=== PATIENT | female | born 1945 | race Caucasian/White ===

== ENCOUNTER 2019-06-15 16:47 | Emergency (ER) | payer MEDICARE, OTHER ==
[~2019-06-15] VITALS: Ht 152.4 cm; Wt 73.5 kg
--- OUTSIDE RECORDS SUMMARY | 2019-06-15 16:50 | XMS REPORT ---
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 Allergies, Adverse Reactions, Alerts Allergy Name Allergy Type Status Severity Reaction(s) Onset Date Inactive Date Treating Clinician Comments acetaminophen DA Active U 2019-06-08 00:00:00 milk FA Active SV 2019-06-08 00:00:00 pregabalin DA Active U 2019-06-08 00:00:00 carbidopa DA Active U 2017-07-12 00:00:00 codeine DA Active U 2017-07-12 00:00:00 acetaminophen DA Active U 2017-07-12 00:00:00 levodopa DA Active U 2017-07-12 00:00:00 sulfamethoxazole DA Active U 2017-07-12 00:00:00 trimethoprim DA Active U 2017-07-12 00:00:00 ciprofloxacin DA Active U 2017-07-12 00:00:00 gabapentin DA Active U 2017-07-12 00:00:00 vancomycin DA Active U 2017-07-12 00:00:00 levofloxacin DA Active U 2017-07-12 00:00:00 Medications This patient has no known medications. Encounters Start Date/Time End Date/Time Encounter Type Admission Type Attending Clinicians Care Facility Care Department Encounter ID 2019-05-10 05:59:00 2019-05-10 05:59:00 Outpatient [facility]SE [id number] Results Test Description Test Time Test Comments Text Results Atomic Results Result Comments GLUBED 2019-06-13 09:42:00 GLUBED (test code=GLUBED) 110 MG/DL 70-110 Performed by certified reflow operator at [facility] [id number] 06:57:00* Test Item Value Reference Range Comments GLUBED (test code=GLUBED) 100 MG/DL 70-110 Performed by certified reflow operator at [facility] COMPREHENSIVE METABOLIC [id number] 15:25:00* Test Item Value Reference Range Comments SODIUM (test code=NA) 138 mEq/L 134-147 POTASSIUM (test code=K) 4.1 mEq/L 3.4-5.0 CHLORIDE (test code=CL) 103 mEq/L 100-108 CARBON DIOXIDE (test code=CO2) 33 mEq/L 21-33 ANION GAP (test code=GAP) 6 0-20 GLUCOSE (test code=GLU) 102 mg/dL 70-110 BLOOD UREA NITROGEN (test code=BUN) 22 mg/dL 7-18 GLOMERULAR FILTRATION RATE (test code=GFR) 54.1 70-80 Units of measure=ml/min/1.73 m2 CREATININE (test code=CREAT) 1.0 mg/dL 0.6-1.3 TOTAL PROTEIN (test code=PROT) 7.9 g/dL 6.4-8.2 ALBUMIN (test code=ALB) 3.70 g/dL 3.4-5.0 CALCIUM (test code=CA) 8.9 mg/dL 8.0-10.5 BILIRUBIN TOTAL (test code=BILT) 0.2 MG/DL <1.5 SGOT/AST (test code=AST) 10 IUnit/L 15-37 SGPT/ALT (test code=ALT) 15 IUnit/L 15-65 ALKALINE PHOSPHATASE TOTAL (test code=ALKP) 86 IUnit/L 20-125 COMPREHENSIVE METABOLIC [id number] 15:21:00* Test Item Value Reference Range Comments SODIUM (test code=NA) 138 mEq/L 134-147 POTASSIUM (test code=K) 4.1 mEq/L 3.4-5.0 CHLORIDE (test code=CL) 103 mEq/L 100-108 CARBON DIOXIDE (test code=CO2) 33 mEq/L 21-33 ANION GAP (test code=GAP) 6 0-20 GLUCOSE (test code=GLU) 102 mg/dL 70-110 BLOOD UREA NITROGEN (test code=BUN) 22 mg/dL 7-18 GLOMERULAR FILTRATION RATE (test code=GFR) 70-80 CREATININE (test code=CREAT) mg/dL 0.6-1.3 TOTAL PROTEIN (test code=PROT) g/dL 6.4-8.2 ALBUMIN (test code=ALB) g/dL 3.4-5.0 CALCIUM (test code=CA) 8.9 mg/dL 8.0-10.5 BILIRUBIN TOTAL (test code=BILT) MG/DL <1.5 SGOT/AST (test code=AST) IUnit/L 15-37 SGPT/ALT (test code=ALT) IUnit/L 15-65 ALKALINE PHOSPHATASE TOTAL (test code=ALKP) IUnit/L 20-125 CBC W/AUTO [id number] 15:11:00* Test Item Value Reference Range Comments WHITE BLOOD CELL (test code=WBC) 5.84 x10 3/uL 4.5-11.0 RED BLOOD CELL (test code=RBC) 4.03 x10 6/uL 3.54-5.02 HEMOGLOBIN (test code=HGB) 9.7 g/dL 11.0-15.0 HEMATOCRIT (test code=HCT) 32.7 % 33.0-45.0 MEAN CELL VOLUME (test code=MCV) 81.1 fL 81.0-99.0 MEAN CELL HGB (test code=MCH) 24.1 pg 27.0-33.0 MEAN CELL HGB CONCETRATION (test code=MCHC) 29.7 g/dL 33.0-37.0 RED CELL DISTRIBUTION WIDTH CV (test code=RDW) 15.3 % 11.5-14.5 RED CELL DISTRIBUTION WIDTH SD (test code=RDW-SD) 45.0 fL 37.0-54.0 PLATELET COUNT (test code=PLT) 226 x10 3/uL 150-400 MEAN PLATELET VOLUME (test code=MPV) 9.5 fL 7.0-9.0 NEUTROPHIL % (test code=NT%) 61.0 % 56.0-77.0 IMMATURE GRANULOCYTE % (test code=IG%) 0.3 % 0.0-2.0 LYMPHOCYTE % (test code=LY%) 21.9 % 14.0-32.0 MONOCYTE % (test code=MO%) 11.0 % 4.8-9.0 EOSINOPHIL % (test code=EO%) 4.8 % 0.3-3.7 BASOPHIL % (test code=BA%) 1.0 % 0.0-2.0 NUCLEATED RBC % (test code=NRBC%) 0.0 % 0-0 NEUTROPHIL # (test code=NT#) 3.56 x10 3/uL 2.0-7.6 IMMATURE GRANULOCYTE # (test code=IG#) 0.02 x10 3/uL 0.00-0.03 LYMPHOCYTE # (test code=LY#) 1.28 x10 3/uL 1.0-3.8 MONOCYTE # (test code=MO#) 0.64 x10 3/uL 0.1-0.8 EOSINOPHIL # (test code=EO#) 0.28 x10 3/uL 0.0-0.2 BASOPHIL # (test code=BA#) 0.06 x10 3/uL 0.0-0.2 NUCLEATED RBC # (test code=NRBC#) 0.00 x10 3/uL 0.0-0.1 MANUAL DIFF REQUIRED (test code=MDIFF) NO - XR CHEST 2 [id number] 15:08:00 FAX: Ginger Gavin MD [phone] [place]: St: PRE Name: JESIKA LEDEZMA [facility] : [birth year] Age/S: 74/F [address] [place] [address] Unit #: [id number] Loc: [place] [address] Phys: Ginger Patterson MD Acct: [id number] Dis Date: Status: PRE [facility] [place]ONE #: [phone] Exam Date: 06/08/2019 1501 FAX #: [phone] Reason: PREOP RECTOCELE EXAMS: CPT CODE: [id number] XR CHEST 2 V 92561 2 VIEW RADIOGRAPHS OF THE CHEST INDICATION: PREOPERATIVE EVALUATION RECTOCELE. TECHN IQUE: 2 radiographic views of the chest were obtained. COMPARISONS : Chest x-ray 09/29/2017 FINDINGS: There is a stable apex leftward thoracolumbar scoliotic curvature with apex at the thoracolu mbar junction. There is no acute osseous abnormality. There is no subdiaphragmatic free gas. There is stable mild cardiomegal y. There is no mediastinal mass. There is moderate atherosclerotic vascul ar calcification of the aorta. There is stable linear scar in the left midlung. There is no pneumothorax, pleural effusion or organized pneu monia. There is a stable left-sided central venous catheter with c atheter tip at the cavoatrial junction. IMPRESSION: 1. No acute cardiopulmonary process. Electron ically Signed by Blanco Tabor on 06/08/2019 at 1504 Reported and signed by: Patrick Tabor D.O. CC: Ginger Patterson MD Techn ologist: RT Hemal(R)(M) Trnscrd Date/Rene e/By: 06/08/2019 (1507) : By: [email or web address] Orig Print D/T: S: 06/08/2019 (9297) PAGE 1 Signed Report
--- NOTE | 2019-06-15 17:18 | NUR ---
bladder scanner shows 60 cc post residual; dr miranda notified
[2019-06-15 17:36] LABS: BILIRUBIN,URINE NEGATIVE (NEGATIVE); CLARITY,URINE SL CLOUDY (CLEAR); COLOR,URINE YELLOW (YELLOW); KETONES,URINE NEGATIVE (NEGATIVE); LEUKOCYTE ESTERASE ,URINE MODERATE (NEGATIVE); NITRITE,URINE POSITIVE (NEGATIVE); PROTEIN,URINE DIPSTICK TRACE (NEGATIVE); URINE UROBILINOGEN 0.2 mg/dL (0.2 - 1)
[2019-06-15 17:42] VITALS: BP 138/67
[2019-06-15 17:49] LABS: BACTERIA,URINE MANY /HPF
[2019-06-16] MEDS ORDERED: LIDOCAINE 5% PATCH TP SCH (09:00)
== END 2019-06-15 17:56 | disposition home or self-care (01) ==
LOC: ER 16:47
DX: N39.45 Continuous leakage (principal); E11.9 Type 2 diabetes mellitus without complications; E78.5 Hyperlipidemia, unspecified; E03.9 Hypothyroidism, unspecified; K21.9 Gastro-esophageal reflux disease without esophagitis; Z85.3 Personal history of malignant neoplasm of breast
CPT/HCPCS: 81001; 99282

== ENCOUNTER 2019-06-22 11:10 | Inpatient (IN) | payer MEDICARE, OTHER ==
[~2019-06-22] VITALS: Ht 152.4 cm; Wt 73.0 kg
--- NOTE | 2019-06-22 11:45 | NUR ---
Patient roomed to ER 7, NIBP, pulse ox, and cardiac monitoring applied to pt. Bed locked in lowest position. Call light in reach. Spouse at bedside. Clark at bedside attempting IV insertion. Will continue to monitor.
[2019-06-22 12:21] LABS: BASOPHILS # (AUTO) 0.1 (0.0-0.1); BASOPHILS % 0.4 % (0.0-1.0); EOSINOPHILS # (AUTO) 0.2 (0.0-0.4); EOSINOPHILS % 1.6 % (0.0-6.0); HEMOGLOBIN 11.5 g/dL (12.0-16.0); LYMPHOCYTES % 8.3 % (18.0-39.1); MEAN CORPUSCULAR HEMOGLOBIN 25.8 pg (28-32); MEAN CORPUSCULAR HGB CONC 30.3 g/dL (31-35); MEAN CORPUSCULAR VOLUME 85.4 fL (81-99); MONOCYTES % 8.1 % (4.4-11.3); NEUTROPHILS # (AUTO) 9.8 (2.1-6.9); NEUTROPHILS % 81.2 % (38.7-80.0); PLATELET COUNT 228 x10e3/uL (140-360); RED BLOOD COUNT 4.45 x10e6/uL (3.6-5.1); RED CELL DISTRIBUTION WIDTH 21.8 % (11.7-14.4)
[2019-06-22 12:35] LABS: INR 0.88; PROTHROMBIN TIME 12.4 seconds (11.9-14.5)
[2019-06-22 12:36] LABS: PARTIAL THROMBOPLASTIN TIME 17.7 seconds (23.8-35.5)
--- NOTE | 2019-06-22 12:36 | NUR ---
Dr. Haley notified of multiple attempts for IV starts, Ok to access port a cath. Pt states last used for iron infusion. Clark able to draw labs, will obtain second set of blood cultures with port a cath access.
[2019-06-22 12:44] LABS: ALBUMIN 3.4 g/dL (3.5-5.0); ALBUMIN/GLOBULIN RATIO 0.7 (0.8-2.0); ANION GAP 18.1 mmol/L (8-16); CALCIUM 10.5 mg/dL (8.4-10.2); CREATININE, SERUM 1.14 mg/dL (0.57-1.11); POTASSIUM 5.1 mmol/L (3.5-5.1)
[2019-06-22 12:50] LABS: CREATINE KINASE MB 1.6 ng/mL (0-5.0)
[2019-06-22 12:57] LABS: B-TYPE NATRIURETIC PEPTIDE2 18.7 pg/mL (0-100)
--- NOTE | 2019-06-22 13:01 | Diagnostic Imaging Report ---
EXAMINATION: CHEST SINGLE (PORTABLE) INDICATION: Back pain COMPARISON: None FINDINGS: LINES/TUBES:None LUNGS:The lungs are moderately inflated. No focal consolidation or pulmonary edema. Mild subsegmental atelectasis at the left midlung zone. PLEURA:No pleural effusion or pneumothorax. MEDIASTINUM:Heart size is at the upper limits of normal. Atherosclerotic calcifications of the thoracic aorta. BONES/SOFT TISSUES:No acute osseous injury. ABDOMEN:No free air under the diaphragm. IMPRESSION: Possible mild cardiomegaly. No focal pneumonia or pulmonary edema. Signed by: Micki Bergman MD on 06/22/2019 12:57 PM
[2019-06-22] MEDS ORDERED: SODIUM CHLORIDE 0.9% 1000ML 1,000 ML ONE (13:13)
[2019-06-22] MEDS ORDERED: MEROPENEM 1GM 100 ML IV ONE ×2 (13:15→13:55)
--- NOTE | 2019-06-22 13:48 | NUR ---
Wedge applied to Left side, patient turned to Right side.
--- NOTE | 2019-06-22 14:30 | NUR ---
Per Dr. Haley order to removed patient's indwelling hatfield catheter which was present on arrival. Purewick (external female catheter) applied to patient for comfort d/t incontinence. Patient and family informed on what a purewick was and how purewicks worked, informed that an external device would be placed between her labia and tubing would be attached and connected to suction and that she would be able to urinate freely, informed of care of purewick and that it would be removed, perineal care provided and changed 8-12hr or sooner if soiled. Pt and family verbalized understanding.
--- NOTE | 2019-06-22 14:31 | NUR ---
Catheter removed, noted to have very foul odor and slimy residual to tip. Perineal care provided for patient, noted to have stool to vaginal area.
[2019-06-22] MEDS ORDERED: SODIUM CHLORIDE 0.9% 1000ML 1,000 ML, SODIUM CHLORIDE 0.9% 1000ML 1,000 ML IV STA (14:37)
[2019-06-22] MEDS ORDERED: SODIUM CHLORIDE 0.9% IV ONE (14:45)
[2019-06-22 15:00] LABS: COLOR,URINE YELLOW (YELLOW)
[2019-06-22 15:01] LABS: BILIRUBIN,URINE NEGATIVE (NEGATIVE); CLARITY,URINE SL CLOUDY (CLEAR); KETONES,URINE NEGATIVE (NEGATIVE); LEUKOCYTE ESTERASE ,URINE TRACE (NEGATIVE); NITRITE,URINE NEGATIVE (NEGATIVE); PROTEIN,URINE DIPSTICK 1+ (NEGATIVE); URINE UROBILINOGEN 2 mg/dL (0.2 - 1)
[2019-06-22 15:06] LABS: BACTERIA,URINE RARE /HPF; EPITHELIAL CELLS,URINE FEW /LPF
--- NOTE | 2019-06-22 15:22 | NUR ---
Wedge placed to Right side, patient repositioned to Left side.
[2019-06-22] MEDS ORDERED: SODIUM CHLORIDE 0.9% 1000ML 1,000 ML IV ONE (15:30)
[2019-06-22] MEDS ORDERED: ONDANSETRON HCL INJ 2MG/ML 2ML 2 MG/ML VIAL IV PRN (15:30)
--- NOTE | 2019-06-22 17:24 | NUR ---
Pt repositioned to back.
--- NOTE | 2019-06-22 17:26 | Diagnostic Imaging Report ---
EXAM: CT Abdomen and Pelvis WITH intravenous contrast INDICATION: Abdominal pain COMPARISON: Chest radiograph of the same day TECHNIQUE: Abdomen and pelvis were scanned utilizing a multidetector helical scanner from the lung base to the pubic symphysis after administration of IV contrast. Coronal and sagittal reformations were obtained. Routine protocol was performed. Scan was performed during portal venous phase. IV CONTRAST: 100mL of Isovue 370 ORAL CONTRAST: Water RADIATION DOSE: Total DLP: 523.5 mGy*cm Dose modulation, iterative reconstruction, and/or weight based adjustment of the mA/kV was utilized to reduce the radiation dose to as low as reasonably achievable. FINDINGS: LOWER THORAX: Right and left lower lobe calcified granulomas. Atherosclerotic coronary artery calcifications. HEPATOBILIARY: No focal liver lesion. No biliary ductal dilation. Status post cholecystectomy. SPLEEN: No splenomegaly. PANCREAS: No focal masses or ductal dilatation. ADRENALS: No adrenal nodules. KIDNEYS/URETERS: Nonobstructive left renal calculi measure up to 3 mm. No hydronephrosis or hydroureter. No solid renal mass lesion. PELVIC ORGANS/BLADDER: Status post hysterectomy. PERITONEUM / RETROPERITONEUM: No free air or fluid. LYMPH NODES: No lymphadenopathy. VESSELS: Moderate atherosclerotic calcifications of the nonaneurysmal abdominal aorta and major branches. GI TRACT: No abnormal bowel thickening. No bowel obstruction. BONES AND SOFT TISSUES: No acute osseous injury. Mild degenerative changes of the visualized spine. No suspicious lytic or blastic lesions. IMPRESSION: No acute findings in the abdomen or pelvis. Nonobstructive left renal calculi. No hydronephrosis. Atherosclerotic calcifications including of the coronary arteries. Signed by: Micki Bergman MD on 06/22/2019 5:22 PM
[2019-06-22] MEDS ORDERED: IOPAMIDOL 370 MG/ML 200 ML INFUS..BTL INJ ONE (18:23)
[2019-06-22] MEDS: INSULIN REGULAR, HUMAN 100 UNIT/1 ML 3ML VIAL SQ SCH ×2 (18:56→21:00)
[2019-06-22] MEDS ORDERED: DEXTROSE 50% SYRINGE 50 ML IV PRN (19:00)
--- NOTE | 2019-06-22 19:00 | NUR ---
Evita provided for patient.
[2019-06-22] MEDS ORDERED: CEPHALEXIN500 MG (19:36)
[2019-06-22] MEDS ORDERED: FOLIC-K CAPSUL1 EACH PO (19:36)
[2019-06-22] MEDS ORDERED: METFORMIN HCL500 M1 PO (19:36)
--- NOTE | 2019-06-22 19:42 | NUR ---
After patient finished eating, wedge applied to Left side and patient repositioned to Right side.
--- NOTE | 2019-06-22 19:55 | NUR ---
Report and care hand off given to Bernie. Pt and family notified of room assignment in IMCU 199.
[2019-06-22 21:17] VITALS: BP 147/54
[2019-06-22 21:33] LABS: CREATINE KINASE MB 1.7 ng/mL (0-5.0)
[2019-06-22] MEDS ORDERED: PANTOPRAZOLE SO40 MG PO (21:43)
[2019-06-22] MEDS ORDERED: BUMETANIDE1 MG PO (21:43)
[2019-06-22] MEDS ORDERED: ASPIR 8181 MG PO (21:43)
[2019-06-22] MEDS ORDERED: K DUR10 MEQ PO (21:43)
[2019-06-22] MEDS ORDERED: PRAVASTATIN SOD40 MG PO (21:43)
[2019-06-22] MEDS ORDERED: MYSOLINE250 MG (21:43)
[2019-06-22] MEDS ORDERED: MYRBETRIQ25 MG PO (21:43)
[2019-06-22] MEDS ORDERED: SYNTHROID100 MCG PO (21:43)
[2019-06-22] MEDS ORDERED: ULTRAM 50MG50 MG (21:49)
[2019-06-22] MEDS ORDERED: CALCIUM + VITA1 EACH PO (21:49)
[2019-06-22] MEDS ORDERED: COLACE100 MG (21:49)
[2019-06-22] MEDS ORDERED: CLARITIN10 MG PO (21:49)
[2019-06-22 23:54] VITALS: BP 127/57
[2019-06-23] MEDS: MEROPENEM 1GM 100 ML IV SCH ×2 (02:11→13:06)
[2019-06-23] MEDS ORDERED: SODIUM CHLORIDE 0.9% 1000ML 1,000 ML ONE (04:59)
[2019-06-23 05:23] LABS: BASOPHILS % 0.3 % (0.0-1.0); EOSINOPHILS # (AUTO) 0.2 (0.0-0.4); EOSINOPHILS % 1.8 % (0.0-6.0); HEMATOCRIT 27.2 % (34.2-44.1); HEMOGLOBIN 8.3 g/dL (12.0-16.0); LYMPHOCYTES # (AUTO) 0.9 (1.0-3.2); LYMPHOCYTES % 9.8 % (18.0-39.1); MEAN CORPUSCULAR HEMOGLOBIN 26.2 pg (28-32); MEAN CORPUSCULAR HGB CONC 30.5 g/dL (31-35); MEAN CORPUSCULAR VOLUME 85.8 fL (81-99); MONOCYTES # (AUTO) 0.8 (0.2-0.8); MONOCYTES % 8.4 % (4.4-11.3); NEUTROPHILS # (AUTO) 7.3 (2.1-6.9); NEUTROPHILS % 79.2 % (38.7-80.0); PLATELET COUNT 189 x10e3/uL (140-360); RED BLOOD COUNT 3.17 x10e6/uL (3.6-5.1); RED CELL DISTRIBUTION WIDTH 21.3 % (11.7-14.4)
[2019-06-23 05:32] LABS: ALANINE AMINOTRANSFERASE 6 IU/L (0-55); ALBUMIN 2.4 g/dL (3.5-5.0); ALBUMIN/GLOBULIN RATIO 0.7 (0.8-2.0); ALKALINE PHOSPHATASE 57 IU/L (40-150); ANION GAP 11.5 mmol/L (8-16); BLOOD UREA NITROGEN 11 mg/dL (7-26); BUN/CREATININE RATIO 14 (6-25); CALCIUM 8.2 mg/dL (8.4-10.2); CARBON DIOXIDE 26 mmol/L (22-29); CHLORIDE 106 mmol/L (98-107); CREATININE, SERUM 0.79 mg/dL (0.57-1.11); EST GLOMERULAR FILTRATION RATE > 60 ML/MIN (60-); GLUCOSE 113 mg/dL (74-118); POTASSIUM 3.5 mmol/L (3.5-5.1); SODIUM 140 mmol/L (136-145)
[2019-06-23 05:40] LABS: INR 1.05; PROTHROMBIN TIME 14.2 seconds (11.9-14.5)
[2019-06-23 05:41] LABS: PARTIAL THROMBOPLASTIN TIME 49.6 seconds (23.8-35.5)
[2019-06-23] MEDS ORDERED: LEVOTHYROXINE SODIUM 100 MCG TAB PO SCH (06:00)
--- NOTE | 2019-06-23 07:10 | NUR ---
Pt received resting in bed. Alert and oriented to person, very forgetful. Oriented to staff and surroundings. Advised to press call chang if help needed. Emotional support given. Call chang within reach. Will monitor
[2019-06-23] MEDS: INSULIN REGULAR, HUMAN 100 UNIT/1 ML 3ML VIAL SQ SCH ×4 (07:30→20:45)
[2019-06-23 08:00] VITALS: BP 132/67
[2019-06-23] MEDS ORDERED: PRAVASTATIN 20 MG TAB PO SCH (09:00)
[2019-06-23] MEDS ORDERED: LORATADINE 10 MG TAB PO SCH (09:00)
[2019-06-23] MEDS ORDERED: PRIMIDONE 250 MG TABLET PO SCH (09:00)
[2019-06-23 09:18] LABS: BASOPHILS % 0.3 % (0.0-1.0); EOSINOPHILS # (AUTO) 0.2 (0.0-0.4); EOSINOPHILS % 1.6 % (0.0-6.0); HEMATOCRIT 32.2 % (34.2-44.1); HEMOGLOBIN 9.8 g/dL (12.0-16.0); LYMPHOCYTES # (AUTO) 0.7 (1.0-3.2); LYMPHOCYTES % 6.6 % (18.0-39.1); MEAN CORPUSCULAR HGB CONC 30.4 g/dL (31-35); MEAN CORPUSCULAR VOLUME 85.4 fL (81-99); MONOCYTES # (AUTO) 0.7 (0.2-0.8); NEUTROPHILS # (AUTO) 8.2 (2.1-6.9); NEUTROPHILS % 84.1 % (38.7-80.0); PLATELET COUNT 189 x10e3/uL (140-360); RED BLOOD COUNT 3.77 x10e6/uL (3.6-5.1); RED CELL DISTRIBUTION WIDTH 21.5 % (11.7-14.4)
[2019-06-23] MEDS: BALSAM PERU/CASTOR OIL 60 GM OINT...G. TP SCH (09:26)
[2019-06-23] MEDS: DOCUSATE SODIUM 100 MG CAP PO SCH ×2 (09:26→17:12)
[2019-06-23] MEDS: ENOXAPARIN SOD INJ 40 MG/0.4 ML SYR SC SCH (09:26)
[2019-06-23] MEDS: OYST-CAL-D 500MG TABLET PO SCH (09:26)
[2019-06-23] MEDS: PANTOPRAZOLE SOD 40 MG TABEC PO SCH (09:26)
[2019-06-23] MEDS: POLYETHYLENE GLYCOL 3350 17 GM PACK PO SCH (09:26)
[2019-06-23] MEDS: FOLIC ACID 1 MG TAB PO SCH (09:26)
[2019-06-23] MEDS ORDERED: LORATADINE 10 MG TAB PO PRN (10:15)
--- NOTE | 2019-06-23 10:42 | NUR ---
74 YO FEMALE HX OF SEPSIS AND UTI ROMULO 18 0N MODERATE PUP AND ALTERNATING SURFACE LABS: WBC- 9.25,HGB-8.3,GLUCOSE- 113 BLOOD CULTURE PENDING SKIN ASSESSMENT COMPLETE PATIENT PRESENTS WITH PARTIAL THICKNESS SACRAL CREASE WOUND 3CMX.3CMX.1CM RECOMMENDATIONS:NURSING TO CONTINUE TO MAINTAIN MODERATE PUP STATUS AND ALTERNATING PRESSURE SURFACE NURSING TO CONTINUE TO ASSIST PATIENT OUT OF BED FOR MEALS AND TOLERATED NURSING TO CONTINUE TO MAINTAIN BILATERAL HEEL PROTECTORS AND PILLOW SUSPENSION OF HEELS WHEN IN BED NURSING TO APPLY DAILY VENELEX OINTMENT TO SACRAL CREASE OPEN AREA AND COVER WITH ALLEVYN FOAM Addendum: 06/23/19 at 1048 by Sushil Santillan RN Amended: Links added.
--- NOTE | 2019-06-23 10:45 | NUR ---
Pt noted with tear to sacral crease. Venelex & Alevyn foam applied. Emotional support given. Pt repositioned q2hrs. Will monitor
[2019-06-23 12:00] VITALS: BP 131/72
[2019-06-23] MEDS: TRAMADOL HCL 50 MG TAB PO PRN (12:45)
[2019-06-23] MEDS: ASPIRIN 81 MG CHEW TAB PO SCH (12:48)
--- NOTE | 2019-06-23 13:25 | NUR ---
Dr. Patterson saw pt. Celebrex 200mg ordered BID due to h/o pinched nerve. Will monitor
[2019-06-23] MEDS: ACETAMINOPHEN 325 MG TAB PO PRN (14:18)
--- NOTE | 2019-06-23 15:31 | NUR ---
SPOKE WITH SON MARCELLA ON PHONE [phone] PRIOR TO HIM GOING OUT OF TOWN. HE STATES THERE IS A DUAL POWER OF HOUSE OFFICER ON FILE BETWEEN HIM AND HIS BROTHER SHEYLA [phone]. SPOKE WITH HIM ABOUT [facility] AND SNF OPTIONS. HE STATES HIS DAD WAS AT [facility] AND THAT IS CLOSE TO HIS HOME IN [facility], HE WANTS HER TO GO THERE WHEN IT IS TIME FOR THE TRANSFER. WILL CHECK IN WITH SHEYLA ON WEDNESDAY TO COMPLETE THE REFERRAL PROCESS.
--- NOTE | 2019-06-23 17:01 | History and Physical ---
CHIEF COMPLAINT: Not feeling well. HISTORY OF PRESENT ILLNESS: This is a 74-year-old female, who has multiple medical issues of note, hypothyroidism, type 2 diabetes, essential tremors, also has a history of bladder incontinence, recently status post bladder suspension presents to the emergency room and she was complaining of not feeling well. The patient reports that she recently had a bladder suspension performed by Dr. Patterson earlier this month. Since then she has been having some urinary incontinence. She was concerned that she had underlying urinary tract infection and came into the emergency room for further evaluation and management. I did speak with the by phone. He reports that she was doing well up until her bladder suspension was performed. Since then, she has declined, been very more weak and was complaining of lower sacral back pain. On evaluation, she does have an induration in her sacral back. She reports that she is very ambulatory at home and has no other issues. No reports of any fever, cough, congestion or any other complaints. reports that since her surgery she has not been very ambulatory due to the severe pain in the lower lumbar region and sacral region. REVIEW OF SYSTEMS: Pertinent positives: Lower back pain, urinary incontinence. Pertinent negatives: Denies any chest pain, palpitation, nausea, vomiting, diarrhea, dysuria, hematuria, frequency, urgency, lightheadedness, dizziness, abdominal pain, headaches, shortness of breath, cough, congestion, fever or any other complaints. The rest of 14-point review of systems have been reviewed with the patient and are negative. ALLERGIES: CARBIDOPA, CIPROFLOXACIN, CODEINE, GABAPENTIN, LEVODOPA, LEVAQUIN, PREGABALIN, SULFAMETHOXAZOLE, TRIMETHOPRIM, AND VANCOMYCIN. PAST MEDICAL HISTORY: She has essential tremors, allergies, type 2 diabetes, recent urinary incontinence requiring a bladder suspension, has a history of breast cancer in remission currently has a port. PAST SURGICAL HISTORY: None. FAMILY HISTORY: Hypertension and diabetes. SOCIAL HISTORY: No drugs, no alcohol, does not smoke. Good social support. PHYSICAL EXAMINATION: VITAL SIGNS: Temperature 99.2, pulse 76, respiratory rate 13, blood pressure 132/67, and pulse ox 99% on room air. GENERAL: Not in acute distress. Alert and oriented x3. Cooperative on examination. HEENT: Normocephalic, atraumatic. Eyes; pupils are equal, round, and reactive to light bilaterally. Extraocular movements are intact bilaterally. NECL: Supple. Good range of motion throughout. No evidence deficits in the posterior pharynx. Poor dentition. PULMONARY: Clear to auscultation bilaterally. No wheezing, rales, or rhonchi. No crackles appreciated. CARDIOVASCULAR: Positive S1, S2. No murmurs, rubs, or gallops. ABDOMEN: Soft, nondistended, and nontender to palpation. Bowel sounds normal. MUSCULOSKELETAL: Strength is 5/5 throughout. No evidence of any muscle deficits on examination. No weakness appreciated. NEUROLOGIC: Cranial nerves II through XII grossly intact. No evidence of muscle deficits on examination. SKIN: Intact. Warm to touch. Good cap refill. PSYCHIATRIC: Normal affect and mood. EXTREMITIES: No edema. Good range of motion throughout. LABORATORY FINDINGS: White count 9.7, hemoglobin 9.8, hematocrit 32, and platelets of 189. Chemistry; sodium 140, potassium 3.5, chloride 106, bicarb 26, anion gap of 11, BUN is 11, creatinine is 0.79, glucose is 113, calcium is 8.2. LFTs within normal range. Troponins are all negative. Albumin was 2.4. Lactic acid on admission was 4 and now 1.4. Urinalysis shows trace leukocyte esterase, WBCs 6-10, RBCs 11-20. MICROBIOLOGY: Blood and urine cultures are pending. IMAGING STUDIES: Chest x-ray, mild cardiomegaly. No focal pneumonia or pulmonary edema. CT abdomen and pelvis, no acute findings in the abdomen and pelvis. Nonobstructing left renal calculi. No hydronephrosis. IMPRESSION: 1. Sepsis presumed secondary to underlying UTI-urine cultures pending, blood cultures pending, IV antibiotics initiated, ID consultation, monitor cultures. 2. Urinary incontinence, status post recent bladder suspension-consult with patient [facility] doctor, Dr. Patterson, who performed the procedure. 3. Essential tremors. Start on primidone. 4. Type 2 diabetes. Insulin sliding scale, Accu-Cheks, A1c. 5. Lower lumbar back pain secondary to being bed-bound with mild skin tear-local wound care provided, wound care nurse consulted. 6. Hypothyroidism-resume same levothyroxine medications, TSH in the morning. 7. Fluid, electrolytes, [id number] IV fluids, regular diet. 8. PT/OT evaluate and treat. 9. Lovenox for DVT prophylaxis. CONSULTANTS: [facility] and Infectious Disease. MD YUE Sanders/JULISSA /[id number]
[2019-06-23] MEDS: CELECOXIB 200 MG CAP PO SCH (17:12)
--- NOTE | 2019-06-23 17:20 | Consultation ---
DATE OF CONSULTATION: REASON FOR CONSULTATION: UTI. HISTORY OF PRESENT ILLNESS: This patient, who had a bladder surgery done on June [address] Patterson at [facility], but the day after she was not able to urinate. The Calle catheter was replaced. Home health was sent for her to get a catheter. However, she started to have fever and chills. She continued to have problems with urine, so the patient was sent here to be admitted. Apparently, the plan for her to have surgery tomorrow. She is just complaining of fever and chills and some lower abdominal pain. PAST MEDICAL HISTORY: Significant for obesity, bladder surgery done recently, diabetes mellitus, hypothyroidism, cancer, GERD, hyperlipidemia, breast cancer, and Parkinson disease. She also had multiple medical access in 1984. PAST SURGICAL HISTORY: Cholecystectomy, hysterectomy, mastectomy, and as mentioned above. ALLERGIES: SHE IS ALLERGIC TO SEVERAL MEDICATIONS INCLUDING CARBIDOPA, CIPROFLOXACIN, CODEINE, GABAPENTIN, LEVOFLOXACIN, SULFAMETHOXAZOLE, AND VANCOMYCIN. SOCIAL HISTORY: There is no smoking, drug abuse, or alcohol abuse. FAMILY HISTORY: Otherwise noncontributory. REVIEW OF SYSTEMS: GENERAL: Just not feeling well. HEENT: There is no headache, visual changes, or hearing changes. GI: There is no nausea, no vomiting, or diarrhea. CARDIAC: There is no arrhythmia. NEURO: There is no seizure activity. No local weakness. Otherwise, all other remaining symptoms are within normal limits. MEDICATIONS: She is currently on Lovenox, Colace, MiraLAX, Protonix, folic acid, meropenem 1 g q.12, Claritin, Synthroid, and Tylenol. LABORATORY DATA: When she first came, her white count was 12.05 and hemoglobin 11.5. Her sodium 140, potassium 3.5, and creatinine 0.79. Liver enzyme within normal limit. Her blood cultures and urine cultures are still pending. Sodium 140 and potassium 3.5. CAT scan of abdomen and pelvis was done, showed no acute finding. IMPRESSION: Fever and chills, suprapubic pain. CAT scan did not reveal an abnormality, concerned about urinary tract infection versus other. Agree with blood cultures and urine cultures. Agree with meropenem for now. We will follow with you. Further recommendations to follow depending on clinical progress. Other medical problems seems to be stable. We will follow with you. MD BRITTANEY Mansfield /[id number]
[2019-06-23 19:00] VITALS: BP 112/64
[2019-06-23 19:41] VITALS: BP 112/64
--- NOTE | 2019-06-23 20:02 | Consultation ---
DATE OF CONSULTATION: HISTORY OF PRESENT ILLNESS: The patient is 74 years old, who came into the hospital through the ER, complaining of fatigue, confusion, and complete lethargy. She was found to have urinary tract infection and possible sepsis. She is status post pelvic floor repair. She was seen in the emergency room at [facility] about a week ago and urinalysis was taken and it showed some possible evidence of infection; however, culture and sensitivity was not ordered, and I have started her on Keflex p.o. tablets. Catheter was placed to reduce her severe urinary incontinence that got worse after repair of her pelvic floor. PAST MEDICAL HISTORY: Significant for breast cancer, diabetes, heart disease, hypertension, hypothyroidism, and parkinsonism. SURGICAL HISTORY: She had appendectomy, bladder surgery, brain surgery, cysts removed, cholecystectomy, heart catheterization, hysterectomy, and pelvic floor repair. MEDICATIONS: See the list. ALLERGIES: SEE THE LIST. SOCIAL HISTORY: No smoking, alcohol, or drug abuse. PHYSICAL EXAMINATION: VITAL SIGNS: Stable. CHEST: Clear to auscultation. CARDIOVASCULAR: Regular rate and rhythm. ABDOMEN: Soft, nontender. ASSESSMENT AND PLAN: A 74 years old, status post pelvic floor repair with severe incontinence, has urinary catheter, sepsis, and UTI. IV antibiotics will start. Removal of the urine catheter would be advised and consult with Infectious Disease would be recommended. Once her urinary tract infection and condition improves, then transobturator tape will be warranted at that stage to help her genuine stress incontinence. Once again, thank you very much for asking me to see Ms. Trent for consult. Please do not hesitate to call me if I can be of any further help in the future. Ginger aPtterson MD DD/JULISSA /[id number]
[2019-06-23] MEDS: PRAVASTATIN 20 MG TAB PO SCH (20:44)
[2019-06-23 23:00] VITALS: BP 107/59
[2019-06-24] MEDS: MEROPENEM 1GM 100 ML IV SCH ×2 (01:57→13:50)
[2019-06-24 03:00] VITALS: BP 110/49
[2019-06-24] MEDS: LEVOTHYROXINE SODIUM 100 MCG TAB PO SCH (05:33)
[2019-06-24 06:33] LABS: BASOPHILS % 0.4 % (0.0-1.0); EOSINOPHILS # (AUTO) 0.3 (0.0-0.4); HEMATOCRIT 28.3 % (34.2-44.1); HEMOGLOBIN 8.8 g/dL (12.0-16.0); LYMPHOCYTES # (AUTO) 0.7 (1.0-3.2); LYMPHOCYTES % 7.6 % (18.0-39.1); MEAN CORPUSCULAR HEMOGLOBIN 26.4 pg (28-32); MEAN CORPUSCULAR HGB CONC 31.1 g/dL (31-35); MONOCYTES # (AUTO) 0.6 (0.2-0.8); NEUTROPHILS % 81.6 % (38.7-80.0); PLATELET COUNT 201 x10e3/uL (140-360); RED BLOOD COUNT 3.33 x10e6/uL (3.6-5.1); RED CELL DISTRIBUTION WIDTH 21.1 % (11.7-14.4)
[2019-06-24 06:50] LABS: ANION GAP 10.6 mmol/L (8-16); BLOOD UREA NITROGEN 9 mg/dL (7-26); BUN/CREATININE RATIO 12 (6-25); CALCIUM 8.6 mg/dL (8.4-10.2); CARBON DIOXIDE 28 mmol/L (22-29); CHLORIDE 104 mmol/L (98-107); CREATININE, SERUM 0.76 mg/dL (0.57-1.11); EST GLOMERULAR FILTRATION RATE > 60 ML/MIN (60-); GLUCOSE 123 mg/dL (74-118); POTASSIUM 3.6 mmol/L (3.5-5.1); SODIUM 139 mmol/L (136-145)
[2019-06-24 07:20] VITALS: BP 135/68
--- NOTE | 2019-06-24 07:20 | NUR ---
Pt noted with blood on purewick. Emotional support given. Cleaned & repositioned. Call chang within reach. Will monitor
[2019-06-24] MEDS: INSULIN REGULAR, HUMAN 100 UNIT/1 ML 3ML VIAL SQ SCH ×4 (07:30→19:43)
[2019-06-24] MEDS: POLYETHYLENE GLYCOL 3350 17 GM PACK PO SCH (08:19)
[2019-06-24] MEDS: ASPIRIN 81 MG CHEW TAB PO SCH (08:19)
[2019-06-24] MEDS: DOCUSATE SODIUM 100 MG CAP PO SCH ×2 (08:19→17:22)
[2019-06-24] MEDS: PANTOPRAZOLE SOD 40 MG TABEC PO SCH (08:19)
[2019-06-24] MEDS: CELECOXIB 200 MG CAP PO SCH ×2 (08:19→17:21)
[2019-06-24] MEDS: FOLIC ACID 1 MG TAB PO SCH (08:19)
[2019-06-24] MEDS: TRAMADOL HCL 50 MG TAB PO PRN ×2 (08:20→19:18)
[2019-06-24] MEDS: OYST-CAL-D 500MG TABLET PO SCH (08:20)
[2019-06-24] MEDS: ENOXAPARIN SOD INJ 40 MG/0.4 ML SYR SC SCH (08:20)
[2019-06-24] MEDS: PRIMIDONE 250 MG TABLET PO SCH (08:20)
[2019-06-24] MEDS: BALSAM PERU/CASTOR OIL 60 GM OINT...G. TP SCH (08:20)
[2019-06-24] MEDS ORDERED: PANTOPRAZOLE SOD 40 MG TABEC PO SCH (09:00)
[2019-06-24 12:00] VITALS: BP 135/68
[2019-06-24] MEDS: SODIUM CHLORIDE 0.9% 1000ML 1,000 ML IV SCH (14:04)
[2019-06-24 16:30] VITALS: BP 120/64
--- NOTE | 2019-06-24 18:15 | NUR ---
Report given to RN covering room 207. Emotional support given. Call chang within reach. (Grace) notified.
--- NOTE | 2019-06-24 18:16 | Progress Note ---
DATE: SUBJECTIVE: Ms. Trent is feeling better. There are no new complaints. REVIEW OF SYSTEMS: HEENT: Negative. PULMONARY: Negative. CARDIAC: Negative. The patient who had a pelvic floor repair with severe incontinence, comes in with UTI. She has been seen by [facility]. LABORATORY DATA: Reviewed. Her blood cultures one set growing gram-positive cocci, one set has no growth. Urine cultures, there is no growth. Her white count is 8.56, hemoglobin 8.8. Sodium 139, potassium 3.6, creatinine of 0.76. PHYSICAL EXAMINATION: GENERAL: She is currently alert, oriented. Does not seem to be in acute distress. VITAL SIGNS: Stable. Currently afebrile. HEENT: She is not icteric. NECK: Supple. CHEST: Clear. HEART: S1, S2. No S3, S4, or murmur. ABDOMEN: Soft. IMPRESSION: Fever, suprapubic pain in a patient, who had pelvic floor repair, concerned about local infection. The urine culture is negative. We will change her to Rocephin and vancomycin. Bacteremia gram-positive cocci, concern infection versus contamination. Await culture sensitivity. We will follow. Clinically, the patient is feeling better. MD BRYSON Mansfield/JULISSA /[id number]
--- NOTE | 2019-06-24 18:32 | NUR ---
pt alert resp even and unlabored, pt Oriented to room and call light, pt aware of pt new room assignment.
--- NOTE | 2019-06-24 19:10 | NUR ---
Patient visited in room during nursing rounds. Patient alert and oriented x3. Left upper chest with port-a-cath accessed and is receiving IVF (NS at 75ml/hr). Pt diapered with use of Purewick. Pt with generalized weakness and is on bedrest. Call chang within reach. Bed alarm active.
--- NOTE | 2019-06-24 19:26 | NUR ---
report given to oncoming nurse. pt stable at this time.
[2019-06-24 19:47] VITALS: BP 145/71
[2019-06-24] MEDS: PRAVASTATIN 20 MG TAB PO SCH (21:20)
[2019-06-24 23:39] VITALS: BP 153/66
[2019-06-25] VITALS (7 sets, daily range): BP systolic 111–160; BP diastolic 54–69
[2019-06-25] MEDS: MEROPENEM 1GM 100 ML IV SCH ×2 (01:56→13:55)
[2019-06-25] MEDS: SODIUM CHLORIDE 0.9% 1000ML 1,000 ML IV SCH ×2 (05:38→16:22)
[2019-06-25] MEDS: LEVOTHYROXINE SODIUM 100 MCG TAB PO SCH (05:38)
[2019-06-25] MEDS: TRAMADOL HCL 50 MG TAB PO PRN (05:44)
[2019-06-25] MEDS: PANTOPRAZOLE SOD 40 MG TABEC PO SCH (06:06)
[2019-06-25 06:39] LABS: BASOPHILS # (AUTO) 0.1 (0.0-0.1); BASOPHILS % 1.1 % (0.0-1.0); EOSINOPHILS # (AUTO) 0.4 (0.0-0.4); EOSINOPHILS % 7.6 % (0.0-6.0); HEMATOCRIT 31.1 % (34.2-44.1); HEMOGLOBIN 9.5 g/dL (12.0-16.0); LYMPHOCYTES % 18.5 % (18.0-39.1); MEAN CORPUSCULAR HGB CONC 30.5 g/dL (31-35); MEAN CORPUSCULAR VOLUME 85.2 fL (81-99); MONOCYTES # (AUTO) 0.5 (0.2-0.8); MONOCYTES % 8.9 % (4.4-11.3); NEUTROPHILS # (AUTO) 3.5 (2.1-6.9); NEUTROPHILS % 63.5 % (38.7-80.0); PLATELET COUNT 261 x10e3/uL (140-360); RED BLOOD COUNT 3.65 x10e6/uL (3.6-5.1); RED CELL DISTRIBUTION WIDTH 20.9 % (11.7-14.4)
[2019-06-25 07:04] LABS: ANION GAP 13.5 mmol/L (8-16); BLOOD UREA NITROGEN 9 mg/dL (7-26); BUN/CREATININE RATIO 12 (6-25); CALCIUM 9.1 mg/dL (8.4-10.2); CARBON DIOXIDE 27 mmol/L (22-29); CHLORIDE 105 mmol/L (98-107); CREATININE, SERUM 0.77 mg/dL (0.57-1.11); EST GLOMERULAR FILTRATION RATE > 60 ML/MIN (60-); GLUCOSE 111 mg/dL (74-118); POTASSIUM 3.5 mmol/L (3.5-5.1); SODIUM 142 mmol/L (136-145)
--- NOTE | 2019-06-25 07:08 | NUR ---
pt alert resp even pt resting comfortably, no distress noted, family at bedside, pt able to make needs known, call light in reach.
[2019-06-25] MEDS: INSULIN REGULAR, HUMAN 100 UNIT/1 ML 3ML VIAL SQ SCH ×4 (07:30→21:00)
[2019-06-25] MEDS: CELECOXIB 200 MG CAP PO SCH ×2 (08:17→17:17)
[2019-06-25] MEDS: POLYETHYLENE GLYCOL 3350 17 GM PACK PO SCH (08:18)
[2019-06-25] MEDS: ASPIRIN 81 MG CHEW TAB PO SCH (08:18)
[2019-06-25] MEDS: ENOXAPARIN SOD INJ 40 MG/0.4 ML SYR SC SCH (08:18)
[2019-06-25] MEDS: FOLIC ACID 1 MG TAB PO SCH (08:18)
[2019-06-25] MEDS: DOCUSATE SODIUM 100 MG CAP PO SCH ×2 (08:18→17:17)
[2019-06-25] MEDS: BALSAM PERU/CASTOR OIL 60 GM OINT...G. TP SCH (08:28)
[2019-06-25] MEDS: OYST-CAL-D 500MG TABLET PO SCH (08:28)
[2019-06-25] MEDS: ACETAMINOPHEN 325 MG TAB PO PRN (10:14)
[2019-06-25] MEDS: PRIMIDONE 250 MG TABLET PO SCH (16:22)
--- NOTE | 2019-06-25 19:16 | NUR ---
report given to oncoming nurse. pt stable.
--- NOTE | 2019-06-25 19:30 | NUR ---
Patient received sitting up in bed. AAO x 3. No acute distress noted . IVF infusing at 75 cc/hr via Port-A-Cath. Safety measures implemented. Patient instructed to call for assistance when needed. Call light within reach.
[2019-06-25] MEDS: PRAVASTATIN 20 MG TAB PO SCH (21:19)
[2019-06-26] VITALS (9 sets, daily range): BP systolic 120–153; BP diastolic 60–83
[2019-06-26] MEDS: MEROPENEM 1GM 100 ML IV SCH (02:15)
[2019-06-26 05:24] LABS: BASOPHILS # (AUTO) 0.1 (0.0-0.1); BASOPHILS % 1.3 % (0.0-1.0); EOSINOPHILS # (AUTO) 0.4 (0.0-0.4); HEMATOCRIT 33.2 % (34.2-44.1); HEMOGLOBIN 9.7 g/dL (12.0-16.0); LYMPHOCYTES # (AUTO) 1.1 (1.0-3.2); LYMPHOCYTES % 23.2 % (18.0-39.1); MEAN CORPUSCULAR HEMOGLOBIN 25.5 pg (28-32); MEAN CORPUSCULAR HGB CONC 29.2 g/dL (31-35); MEAN CORPUSCULAR VOLUME 87.4 fL (81-99); MONOCYTES # (AUTO) 0.5 (0.2-0.8); MONOCYTES % 10.5 % (4.4-11.3); NEUTROPHILS # (AUTO) 2.7 (2.1-6.9); NEUTROPHILS % 55.9 % (38.7-80.0); PLATELET COUNT 254 x10e3/uL (140-360)
[2019-06-26] MEDS: SODIUM CHLORIDE 0.9% 1000ML 1,000 ML IV SCH ×2 (05:30→18:17)
[2019-06-26 05:58] LABS: ANION GAP 12.8 mmol/L (8-16); BLOOD UREA NITROGEN 7 mg/dL (7-26); BUN/CREATININE RATIO 9 (6-25); CALCIUM 9.2 mg/dL (8.4-10.2); CARBON DIOXIDE 25 mmol/L (22-29); CHLORIDE 106 mmol/L (98-107); CREATININE, SERUM 0.76 mg/dL (0.57-1.11); EST GLOMERULAR FILTRATION RATE > 60 ML/MIN (60-); GLUCOSE 102 mg/dL (74-118); POTASSIUM 3.8 mmol/L (3.5-5.1); SODIUM 140 mmol/L (136-145)
[2019-06-26] MEDS: LEVOTHYROXINE SODIUM 100 MCG TAB PO SCH (06:00)
--- NOTE | 2019-06-26 07:00 | NUR ---
BEDSIDE SHIFT REPORT RECEIVED FROM THE HOUSE SUPERINTENDENT RN. EDUCATED PT ABOUT FALL PRECAUTIONS. CALL LIGHT WITH IN EASY REACH. INSTRUCTED PT TO USE CALL LIGHT FOR ALL THE NEEDS. PT VERBALIZED UNDERSTANDING. BED IS LOW AND LOCKED. SIDE RAILS X2. BED ALARM IS ON. PT DENIED FURTHER NEEDS.
[2019-06-26] MEDS: INSULIN REGULAR, HUMAN 100 UNIT/1 ML 3ML VIAL SQ SCH ×4 (07:30→21:00)
[2019-06-26] MEDS: PANTOPRAZOLE SOD 40 MG TABEC PO SCH (08:30)
[2019-06-26] MEDS: BALSAM PERU/CASTOR OIL 60 GM OINT...G. TP SCH (09:00)
[2019-06-26] MEDS: CELECOXIB 200 MG CAP PO SCH ×2 (09:00→17:17)
[2019-06-26] MEDS: DOCUSATE SODIUM 100 MG CAP PO SCH ×2 (09:00→17:17)
[2019-06-26] MEDS: POLYETHYLENE GLYCOL 3350 17 GM PACK PO SCH (09:00)
[2019-06-26] MEDS: FOLIC ACID 1 MG TAB PO SCH (09:34)
[2019-06-26] MEDS: ASPIRIN 81 MG CHEW TAB PO SCH (09:34)
[2019-06-26] MEDS: ENOXAPARIN SOD INJ 40 MG/0.4 ML SYR SC SCH (09:35)
[2019-06-26] MEDS: OYST-CAL-D 500MG TABLET PO SCH (10:00)
[2019-06-26] MEDS: PRIMIDONE 250 MG TABLET PO SCH (10:00)
--- NOTE | 2019-06-26 10:32 | NUR ---
FAXED CLINICALS TO [facility]
--- NOTE | 2019-06-26 10:35 | NUR ---
EDUCATED ABOUT IMM, SIGNED, FILED IN CHART, WITH COPY LEFT WITH FAMILY AT BEDSIDE.
--- NOTE | 2019-06-26 11:14 | Progress Note ---
DATE: SUBJECTIVE: Ms. Trent is feeling better. She is able to walk a little better. REVIEW OF SYSTEMS: Otherwise unremarkable. Her blood cultures are showing Streptococcus burden. LABORATORY DATA: Otherwise white count 4.7, hemoglobin 9.7. Sodium 140, potassium 3.8 creatinine 0.76. MEDICATIONS: She is currently on: 1. Folic acid. 2. Celebrex. 3. Protonix. 4. She is on meropenem. PHYSICAL EXAMINATION: GENERAL: She is currently alert, oriented, does not seem to be in acute distress. VITAL SIGNS: Stable. Currently afebrile. HEENT: She is not icteric. NECK: Supple. No JVD. No carotid no thyromegaly. CHEST: Clear bilateral. COR: S1 and S2. No S3, S4, or murmur. ABDOMEN: Soft. IMPRESSION AND PLAN: 1. Sepsis on admission, bacteremia with strep viridans in we will put on Rocephin 1 g daily. 2. Debility with Rocephin 1 g q.12. We will obtain echocardiogram to rule out endocarditis since it was present on admission. 3. Debility. Continue PT/ OT. 4. We will follow. MD BRYSON Mansfield/JULISSA /[id number]
--- NOTE | 2019-06-26 12:13 | NUR ---
RETIREMENT FACILITY DISCHARGE INFORMATION PATIENT HAS BEEN ACCEPTED TO: [facility] NAME:[facility] ADDRESS: [address] [place] [address] ACCEPTING BOILER OPERATOR: LULU CESPEDES ACCEPTING MD: JULIO ROOM:[id number] NURSE CALL REPORT TO: [phone] ASK FOR STATION 2 IMM SIGNED AND OBTAINED (if applicable): YES THE FOLLOWING DOCUMENTS MUST ACCOMPANY PATIENT FOR TRANSFER: COPIED CHART: CLINICALS AND PASRR
[2019-06-26] MEDS: CEFTRIAXONE SOD 1 GM/NS 50 ML 50 ML IV SCH ×2 (12:19→23:30)
--- NOTE | 2019-06-26 12:30 | NUR ---
DR. GOMEZ AT BEDSIDE. DO NOT DISCHARGE PT PER THE DR TILL HE CONFIRM.
--- NOTE | 2019-06-26 19:00 | NUR ---
BEDSIDE SHIFT REPORT GIVEN TO THE PRINTING FILM STRIPPER RN. PT DENIED FURTHER NEEDS.
--- NOTE | 2019-06-26 19:25 | NUR ---
Patient received lying in bed. AAO x 3. No acute distress noted. Patient instructed about NPO status after midnight due to upcoming procedure -----Transobturator tape and Cystoscopy. Patient verbalized understanding. Safety measures in place. Call light within reach.
[2019-06-26] MEDS: PRAVASTATIN 20 MG TAB PO SCH (21:20)
[2019-06-27] VITALS (7 sets, daily range): BP systolic 137–157; BP diastolic 65–143
[2019-06-27] MEDS ORDERED: SODIUM CHLORIDE 0.9% 1000ML 1,000 ML IV SCH
[2019-06-27] MEDS: SODIUM CHLORIDE 0.9% 1000ML 1,000 ML IV SCH ×2 (04:00→22:00)
[2019-06-27] MEDS: LEVOTHYROXINE SODIUM 100 MCG TAB PO SCH (06:00)
--- NOTE | 2019-06-27 07:00 | NUR ---
Patient resting comfortably. Patient denies needs at this time. Shift report given to oncoming nurse.
--- NOTE | 2019-06-27 07:14 | NUR ---
walking rounds completed, received change of shift report from restaurant shift supervisor RN, pt resting, easily aroused, no signs of distress, will continue to monitor.
[2019-06-27] MEDS: PANTOPRAZOLE SOD 40 MG TABEC PO SCH (07:30)
[2019-06-27] MEDS: CELECOXIB 200 MG CAP PO SCH ×2 (08:00→16:55)
[2019-06-27] MEDS: INSULIN REGULAR, HUMAN 100 UNIT/1 ML 3ML VIAL SQ SCH ×4 (08:16→21:00)
[2019-06-27] MEDS: POLYETHYLENE GLYCOL 3350 17 GM PACK PO SCH (08:53)
[2019-06-27] MEDS: ASPIRIN 81 MG CHEW TAB PO SCH (08:53)
[2019-06-27] MEDS: FOLIC ACID 1 MG TAB PO SCH (08:53)
[2019-06-27] MEDS: DOCUSATE SODIUM 100 MG CAP PO SCH ×2 (08:53→16:55)
[2019-06-27] MEDS: PRIMIDONE 250 MG TABLET PO SCH (08:54)
[2019-06-27] MEDS: OYST-CAL-D 500MG TABLET PO SCH (08:54)
[2019-06-27] MEDS: ENOXAPARIN SOD INJ 40 MG/0.4 ML SYR SC SCH (08:59)
[2019-06-27] MEDS ORDERED: BUPIVACAINE 0.25%/EPI 30ML SDV INJ ONE (10:49)
[2019-06-27] MEDS ORDERED: ESTROGENS CONJUGATED VAGINAL CR 45 GM TUBE PV ONE (10:49)
[2019-06-27] MEDS: CEFTRIAXONE SOD 1 GM/NS 50 ML 50 ML IV SCH ×2 (11:30→22:21)
--- NOTE | 2019-06-27 11:34 | NUR ---
PT TAKEN VIA STRETCHER TO OR FOR PROCEDURE; LEFT WITH IV ROCEPHIN TO BE GIVEN IN OR DEPARTMENT. PT AWAKE, ALERT, STABLE, NO S/S DISTRESS.LEFT IN STABLE CONDITION.
--- NOTE | 2019-06-27 13:32 | NUR ---
received report from PACU; pt in stable condition, awaiting arrival back on unit.
--- NOTE | 2019-06-27 13:37 | NUR ---
pt arrived from surgery, in stable condition; will continue to assess.
--- NOTE | 2019-06-27 14:07 | NUR ---
pt voided 225 mL of blood-tinged urine; vaginal packing removed per MD orders. will perform bladder scan for post-void residual.
--- NOTE | 2019-06-27 14:15 | NUR ---
bladder scanner at bedside showed 121 mL residual urine. will page Dr Patterson.
--- NOTE | 2019-06-27 14:21 | NUR ---
paged Dr Patterson; unable to reach MD. sent to mortgage loan assistant's voicemail.
--- NOTE | 2019-06-27 14:54 | NUR ---
CALLED PATRIA AT [facility] AND LET HER KNOW WE ARE WAITING ON DOC TO RETURN CALL THEN WILL GO. MAY BE TONIGHT OR TOMORROW DEPENDING MORTICIAN HELPER. PACKET READY WITH RTF AND PASRR UPDATED AT NURSES STATION. AUTH IS GOOD THROUGH TOMORROW NIGHT.
[2019-06-27] MEDS: TRAMADOL HCL 50 MG TAB PO PRN (15:39)
[2019-06-27] MEDS: BALSAM PERU/CASTOR OIL 60 GM OINT...G. TP SCH (17:08)
--- NOTE | 2019-06-27 18:01 | NUR ---
spoke with Dr. Patterson; he states pt is clear to be discharged from his standpoint without hatfield catheter. will contact Dr. Mitchell.
--- NOTE | 2019-06-27 18:04 | NUR ---
spoke with Dr. Mitchell regarding conversation with Dr. Patterson; he states once results of echocardiogram have been read by MD, he will be able to discharge pt home.
[2019-06-27] MEDS ORDERED: SEVOFLURANE INHAL SOLN 250 ML PEN BTL ONE (18:41)
[2019-06-27] MEDS ORDERED: LIDOCAINE HCL 2% LOCAL INJ 5 ML SDV VIAL INJ ONE (18:41)
[2019-06-27] MEDS ORDERED: KETOROLAC TROMETHAMINE 30 MG/ML VIAL ONE (18:41)
[2019-06-27] MEDS ORDERED: PROPOFOL IV EMULSION 10 MG/ML 20 ML VIAL ONE (18:41)
[2019-06-27] MEDS ORDERED: ACETAMINOPHEN 1000 MG/100 ML IV ONE (18:41)
[2019-06-27] MEDS ORDERED: ONDANSETRON HCL INJ 2MG/ML 2ML 2 MG/ML VIAL ONE (18:41)
--- NOTE | 2019-06-27 19:25 | NUR ---
Patient received lying in bed. AAO x 3. Patient had no complaints of pain. Respirations even and non-labored on 2L NC. Safety measures in place. Patient instructed to call for assistance when needed. Call light within reach.
[2019-06-27] MEDS ORDERED: FENTANYL CITRATE/PF 100MCG/2 ML INJ ONE (19:35)
[2019-06-27] MEDS: PRAVASTATIN 20 MG TAB PO SCH (21:00)
--- NOTE | 2019-06-27 21:45 | NUR ---
Patient assisted to BSC. Urine is blood tinged. Patient safely transferred to bed. Will continue to monitor.
[2019-06-28] MEDS: SODIUM CHLORIDE 0.9% 1000ML 1,000 ML IV SCH
[2019-06-28 00:52] VITALS: BP 139/68
[2019-06-28 04:40] VITALS: BP 155/70
[2019-06-28] MEDS: LEVOTHYROXINE SODIUM 100 MCG TAB PO SCH (06:15)
--- NOTE | 2019-06-28 07:00 | NUR ---
Patient resting comfortably. Shift report given to oncoming nurse.
--- NOTE | 2019-06-28 07:03 | NUR ---
received change of shift report, walking rounds completed, pt resting comfortably, respirations even and nonlabored, no s/s distress. will continue to monitor.
[2019-06-28] MEDS: INSULIN REGULAR, HUMAN 100 UNIT/1 ML 3ML VIAL SQ SCH ×2 (07:30→12:45)
[2019-06-28 07:56] VITALS: BP 141/60
[2019-06-28 08:03] VITALS: BP 141/60
[2019-06-28] MEDS: PANTOPRAZOLE SOD 40 MG TABEC PO SCH (08:31)
[2019-06-28] MEDS: ASPIRIN 81 MG CHEW TAB PO SCH (08:32)
[2019-06-28] MEDS: DOCUSATE SODIUM 100 MG CAP PO SCH (08:32)
[2019-06-28] MEDS: CELECOXIB 200 MG CAP PO SCH (08:32)
[2019-06-28] MEDS: FOLIC ACID 1 MG TAB PO SCH (08:33)
[2019-06-28] MEDS: POLYETHYLENE GLYCOL 3350 17 GM PACK PO SCH (08:33)
[2019-06-28] MEDS: PRIMIDONE 250 MG TABLET PO SCH (08:33)
[2019-06-28] MEDS: OYST-CAL-D 500MG TABLET PO SCH (08:33)
[2019-06-28] MEDS: ENOXAPARIN SOD INJ 40 MG/0.4 ML SYR SC SCH (08:35)
[2019-06-28] MEDS: BALSAM PERU/CASTOR OIL 60 GM OINT...G. TP SCH (08:45)
--- NOTE | 2019-06-28 10:23 | NUR ---
IMM letter delivered and explained to pt and son at bedside. They verbalized understanding. Pt asked her son to sign. Signed copy place in chart. Copy to pt's son.
[2019-06-28] MEDS: TRAMADOL HCL 50 MG TAB PO PRN (10:31)
[2019-06-28 11:43] VITALS: BP 139/64
[2019-06-28] MEDS: CEFTRIAXONE SOD 1 GM/NS 50 ML 50 ML IV SCH (13:28)
--- NOTE | 2019-06-28 14:33 | NUR ---
called report to [facility] Koch, spoke with Elif GASPAR.
--- NOTE | 2019-06-28 15:17 | Progress Note ---
DATE: SUBJECTIVE: Ms. Trent is doing better. She is still weak, however, there are no new complaints. PHYSICAL EXAMINATION: GENERAL: She is currently alert, oriented, does not seem to be in acute distress. VITAL SIGNS: Stable. Currently afebrile. HEENT: She is not icteric. NECK: Supple. CHEST: Clear. HEART: S1, S2. No murmur. ABDOMEN: Soft and obese. No tenderness. No hepatosplenomegaly. EXTREMITIES: No edema. IMPRESSION: Bacteremia strep burden. Continue Rocephin for 2 weeks. The patient is going for skilled to get PT, OT. Discussed with the family. She will see me in 3 weeks in the office. We will follow. MD BRYSON Mansfield/JULISSA /[id number]
[2019-06-28 15:59] VITALS: BP 138/65
--- NOTE | 2019-06-28 20:34 | Operative Report ---
DATE OF PROCEDURE: SURGEON: Ginger Patterson MD PREOPERATIVE DIAGNOSIS: Genuine stress incontinence. POSTOPERATIVE DIAGNOSIS: Genuine stress incontinence. PROCEDURES: Transobturator tape and cystoscopy. COMPLICATIONS: None. ESTIMATED BLOOD LOSS: Minimal. DESCRIPTION OF PROCEDURE: The patient was taken to the OR. General anesthesia was induced. She was prepped and draped in a normal sterile fashion and placed in dorsal lithotomy position. After examination under anesthesia, weighted speculum was placed inside the vagina and the two Allis clamps applied, one at the external urethral meatus and the other one at the UPJ, which was marked by Calle catheter balloon and subvaginal tissue injected anteriorly using Marcaine with epi of 0.25%. A midurethral subvaginal skin incision was made with a scalpel and the subvaginal tissue was dissected from the urethra using Metzenbaum scissors using the push spread technique towards the inferior pubic ramus on both sides. Stab wounds were made at the entry points, which were delivered on the skin at the level of the clitoris and the intercrural line; following this, the Obtryx trocar was passed through the entry points, felt with the finger at the inferior pubic ramus and guided through the outside of the wound. The same was repeated on the other side and sling was threaded on the Obtryx trocar. The trocars were removed and sling was laid down flat at the level of the mid urethra. Cystoscopy was performed, which showed normal bladder and urethra, but the internal urethral meatus was widely opened, the tension was applied on the Obtryx sling and leakage from the bladder was stopped; following this the sling plastic cover was removed. The vagina was approximated using Vicryl 2-0. Skin at the entry points was approximated using Dermabond after cutting off the strings. The patient tolerated the procedure well. Lap, instrument, and needle count was correct x2 at the end of the procedure. Ginger Patterson MD DD/MARCUSL /[id number]
--- NOTE | 2019-06-29 11:37 | Discharge Summary ---
FINAL DISCHARGE DIAGNOSES: 1. Sepsis secondary to underlying Streptococcus bacteremia. 2. Urinary incontinence, status post recent bladder suspension, now status post cystoscopy performed by Dr. Patterson. 3. Essential tremors. 4. Type 2 diabetes. 5. Lower lumbar back pain, chronic in nature. 6. Hypothyroidism. CONSULTANTS: [facility], Infectious Disease. PHYSICAL EXAMINATION: VITAL SIGNS: Temperature is 98.6, pulse 69, respiratory rate is 18, blood pressure 139/64, pulse ox 97% on room air. LABORATORY FINDINGS: White count was 4.7, hemoglobin 9.7, hematocrit 33, platelets of 254. Coagulation, PT 14, INR 1, PTT is 49. Chemistry, sodium was 140, potassium is 3.8, chloride is 106, bicarbonate is 25, BUN was 7, creatinine is 0.76, zpass-vy-ynay glucose 159. Lactic acid normal 1.4. LFTs within normal range. Troponins were all negative. Albumin was 2.4. Urinalysis negative. Urine culture negative. Blood culture one of 2 positive for Streptococcus viridans. IMAGING DATA: Chest x-ray, possible mild cardiomegaly. No focal pneumonia or pulmonary edema. CT abdomen and pelvis shows no acute findings in the abdomen or pelvis. Nonobstructive left renal calculus. No hydronephrosis. Atherosclerotic calcifications including of the coronary arteries. HOSPITAL COURSE: A 74-year-old female, multiple comorbidities of note, who has underlying urinary incontinence, which was following up with [facility], Dr. Patterson, who recently had a bladder suspension, presents to the emergency room with underlying sepsis concerning initially for UTI. The patient was on broad-spectrum IV antibiotics. She was found to be elevated leukocytosis and with fever. ID was consulted. Urine cultures were found to be negative, but the patient had a positive blood culture, one of 2 positive for Streptococcus viridans. The patient maintained on IV antibiotics and discharged on oral Levaquin to complete 14 total days of antibiotic therapy. The patient was cleared for discharge by ID. As for her urinary incontinence, STATUE [facility] was consulted and the patient underwent yesterday on 06/27/2019, status post TOT sling with cystoscopy. The patient did well post procedure with no issues. She also had a transvaginal sling placed yesterday 06/27/2019. The patient maintained overnight with no issues. She was afebrile and normotensive. Labs were stable. On the day of discharge, vital signs were stable, labs reviewed and stable. The patient seen, evaluated, examined thoroughly on the day of discharge. No other complaints. The patient verbalized understanding and agrees to plan of care to follow up accordingly as an outpatient with the primary care physician in 1 week and [facility] in about 2 weeks' time, ID in 2 weeks' time. The patient was cleared for discharge by both consultants, STATUE CAR[facility] and Infectious Disease. MEDICATIONS: See med reconciliation form. DISPOSITION: Home. CONDITION: senior care facility. CONDITION: Stable. DIET: Heart healthy. In the event of any worsening symptoms, the patient was advised to come back to the ED for further evaluation. Discharge summary took greater than 35 minutes. MD YUE Sanders/JULISSA /[id number]
== END 2019-06-28 17:05 | DRG 662 ==
LOC: ER 11:10 → ERHOLD 15:46 → IMCU 19:57 → MED/SURG2 06-24 18:19
PROVIDERS: ADMIT Internal Medicine; ATTEND Internal Medicine
PROC: 0TSD4ZZ Reposition Urethra, Percutaneous Endoscopic Approach (ICD-10-PCS; principal; 2019-06-28)
DX: T83.511A Infection and inflammatory reaction due to indwelling urethral catheter, initial encounter (principal); A40.9 Streptococcal sepsis, unspecified; N39.0 Urinary tract infection, site not specified; R32 Unspecified urinary incontinence; E11.9 Type 2 diabetes mellitus without complications; E03.9 Hypothyroidism, unspecified; M54.5 Low back pain; G89.29 Other chronic pain; K21.9 Gastro-esophageal reflux disease without esophagitis; Z85.3 Personal history of malignant neoplasm of breast; G20 Parkinson's disease; Z90.10 Acquired absence of unspecified breast and nipple; Z74.01 Bed confinement status
CPT/HCPCS: 36415; 71045; 74177; 80048; 80053; 81001; 82550; 82553; 82948; 83605; 83880; 84484; 85025; 85610; 85730; 87040; 87071; 87086; 87205; 93005; 93306; 94660; 96361; 97139; 99284; J0696; J1650; J1817; J1885; J2001; J2405; J3010; J7030; J7050; Q9967